=== PATIENT | male | born 1975 | race Caucasian/White ===

== ENCOUNTER 2017-12-18 15:22 | Emergency (ER) | payer BC ==
[2017-12-18] MEDS ORDERED: Sodium Chloride 0.9% 1,000 ML IV ONE ×2 (16:10→18:49)
[2017-12-18] MEDS ORDERED: Sodium Chloride 0.9% 10 ML Syringe FLUSH PRN (16:10)
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
--- NOTE | 2017-12-18 16:54 | CT ---
Head CT Technique: Multiple axial sections through the brain were obtained. Intravenous contrast was not utilized. Comparison: No previous intracranial imaging. Findings: Ventricles along the basal cisterns and sulci over the convexities are within normal limits for the patient's age. No evidence of intracranial hemorrhage. No midline shift or mass effect is seen. Symmetric low density findings are seen within the basal ganglia on both sides most likely representing prominent perivascular spaces. No other abnormal parenchymal densities are seen. Bone window settings were reviewed which shows minimal rounded soft tissue densities within the right side of the sphenoid sinus most likely due to minimal retention cysts. No acute calvarial abnormality is seen. Impression: 1. Sinus finding felt to be incidental as noted above. 2. Symmetric low density findings within the basal ganglia most likely due to incidental prominent perivascular spaces. 3. No acute intracranial abnormality is identified. Diagnostic code #2
[2017-12-18] MEDS ORDERED: Ketorolac 30 MG/ML SDV IVPUSH ONE (17:56)
[2017-12-18] MEDS ORDERED: HYDROmorphone 0.5 MG/0.5 ML SYRINGE IVPUSH ONE (18:49)
--- NOTE | 2017-12-19 11:12 | CR ---
Chest: Portable view of the chest was obtained. Comparison: No prior study. Heart size and mediastinum are normal. Lungs are clear. Minimal scoliosis is present within the spine. Impression: 1. Nothing acute is appreciated on portable chest x-ray. Diagnostic code #2
== END 2017-12-18 20:25 | disposition home or self-care (01) ==
LOC: JD.ED 15:22
DX: G43.909 Migraine, unspecified, not intractable, without status migrainosus (principal); R68.83 Chills (without fever); T39.1X5A Adverse effect of 4-Aminophenol derivatives, initial encounter; T39.315A Adverse effect of propionic acid derivatives, initial encounter; M54.9 Dorsalgia, unspecified; I10 Essential (primary) hypertension
CPT/HCPCS: 36415; 70450; 71045; 80053; 80306; 81001; 82550; 82962; 84443; 84484; 85007; 85027; 86140; 93005; 96361; 96374; 99285; G0480; J1885; J7040; J7050

== ENCOUNTER 2018-09-25 20:25 | Emergency (ER) | payer BC ==
--- NOTE | 2018-09-25 21:17 | EDM.PDOC ---
ED HPI GENERAL MEDICAL PROBLEM - General Chief Complaint: Gastrointestinal Problem Stated Complaint: Throat FB Time Seen by Provider: 09/25/18 20:51 Source of Information: Reports: Patient, RN Notes Reviewed - History of Present Illness INITIAL COMMENTS - FREE TEXT/NARRATIVE: 43-year-old male presents to ED with food stuck in his esophagus. He was eating steak about an hour ago and what he believes was a chunk of steak got stuck upper chest. There was intense localized discomfort, difficulty to drink or swallow saliva. Now just a few minutes before I got into the room states "it went down". He still has very slight discomfort upper chest but nothing like what he had been experiencing. She has had food "hang out in his upper esophageal area" somewhat frequently in the past never had complete obstruction like this where "it would not go down". History of acid reflux for quite some time. He currently takes Tums or Rolaids as needed. Taken OTC omeprazole in the past but currently not taking that on a regular basis. Throat Pain Score (Numeric/FACES): 3 - Related Data Allergies Allergy/AdvReac Type Severity Reaction Status Date / Time Penicillins Allergy Rash Verified 09/25/18 20:35 Home Meds: Home Meds Omeprazole 40 mg PO ONETIME #30 cap.sr 09/25/18 [Rx] Past Medical History - Past Health History Medical/Surgical History: Denies Medical/Surgical History Cardiovascular History: Reports: Hypertension Social & Family History - Tobacco Use Smoking Status *Q: Never Smoker - Caffeine Use Caffeine Use: Reports: Coffee, Energy Drinks, Soda, Tea - Recreational Drug Use Recreational Drug Use: No ED ROS GENERAL - Review of Systems Review Of Systems: See Below Constitutional: Reports: No Symptoms HEENT: Denies: Throat Pain, Throat Swelling Respiratory: Denies: Shortness of Breath Cardiovascular: Reports: Chest Pain (Upper mid chest) GI/Abdominal: Reports: Nausea (Now better). Denies: Abdominal Pain, Vomiting Musculoskeletal: Denies: Shoulder Pain, Arm Pain, Back Pain Skin: Reports: No Symptoms Neurological: Reports: No Symptoms ED EXAM, GI/ABD - Physical Exam Exam: See Below General Appearance: Alert, No Apparent Distress Throat/Mouth: Normal Inspection, Normal Oropharynx Neck: Supple Respiratory/Chest: No Respiratory Distress, Lungs Clear, Normal Breath Sounds Cardiovascular: Regular Rate, Rhythm GI/Abdominal Exam: Soft, Non-Tender Neurological: Alert, Oriented, No Motor/Sensory Deficits Skin Exam: Warm, Dry Course - Vital Signs Last Recorded V/S: Last Vital Signs Temp 97.8 F 09/25/18 20:30 Pulse 87 09/25/18 20:30 Resp 18 09/25/18 20:30 BP 153/117 H 09/25/18 20:30 Pulse Ox 99 09/25/18 20:30 - Re-Assessments/Exams Free Text/Narrative Re-Assessment/Exam: 09/25/18 23:17 Patient reportedly was quite uncomfortable on arrival to ED but no evidence of food boluses gone down he is feeling tremendously better. Have him drink water and that went down well without difficulty he feels slight discomfort swallowing but is able to get it down which he had not been able to do at home or upon arrival to ED. She's been advised that he does need to follow-up with the medical provider and should have endoscopy done to evaluate his esophagus. His was present while we had this discussion. Discharge instructions as documented. Departure - Departure Time of Disposition: 21:11 Disposition: Home, Self-Care 01 Condition: Fair Clinical Impression: Chronic GERD Food impaction of esophagus Qualifiers: Encounter type: initial encounter Qualified Code(s): T18.128A - Food in esophagus causing other injury, initial encounter - Discharge Information Prescriptions: Omeprazole 40 mg PO ONETIME #30 cap.sr Instructions: Gastroesophageal Reflux Disease, Adult, [id number] Referrals: PCP,None [Primary Care Provider] - Forms: ED Department Discharge Additional Instructions: clear liquids and careful soft diet for the next 2 to 3 days, than advance diet slowly and carefully as tolerated, cut meat and all other foods very carefully into very small pieced, chew food very carefully before swallowing, see one of the surgeons or Dr Coffman at [facility], call [phone] for appt., return to ED as needed. Take omeprazole 40 mg tonight, a prescription has been sent to [facility], you can pick that up tomorrow morning.
== END 2018-09-25 21:29 | disposition home or self-care (01) ==
LOC: JD.ED 20:25
DX: T18.128A Food in esophagus causing other injury, initial encounter (principal); K21.9 Gastro-esophageal reflux disease without esophagitis; I10 Essential (primary) hypertension; Z88.0 Allergy status to penicillin
CPT/HCPCS: 99282; 99283

== ENCOUNTER → 2020-07-15 | Day surgery (SDC) | payer BC ==
[~2020-07-15] MED LIST: Lactated Ringers 1,000 ML IV SCH; Lidocaine 1%/Sod Bicarbonate in NS 8.4% 1 ML Syringe IDERM PRN; Midazolam 1 MG/ML 2 ML SDV ONE; Propofol 200 MG/20 ML SDV ONE; Sodium Chloride 0.9% 10 ML Syringe FLUSH PRN
--- NOTE | 2020-07-15 07:24 | PCM.PREANE ---
Preanesthetic Assessment - Procedure Proposed Procedure: EGD - Anesthesia/Transfusion/Family Hx Anesthesia History: No Prior Anesthesia Family History of Anesthesia Reaction: No Transfusion History: No Prior Transfusion(s) Intubation History: Unknown - Review of Systems General: No Symptoms Pulmonary: No Symptoms Cardiovascular: No Symptoms Gastrointestinal: Other (GERD when not on medication, dysphagia ) Neurological: No Symptoms Other: Reports: None - Physical Assessment NPO Status Date: 07/14/20 NPO Status Time: 21:00 Height: 1.83 m Weight: 101.2 kg ASA Class: 2 Mental Status: Alert & Oriented x3 Thyro-Mental Finger Breadths: 3 Mouth Opening Finger Breadths: 5 ROM/Head Extension: Full Lungs: Clear to Auscultation, Normal Respiratory Effort Cardiovascular: Regular Rate, Regular Rhythm - Blood Blood Available: No - Acknowledgements Anesthesia Type Planned: MAC Pt an Appropriate Candidate for the Planned Anesthesia: Yes Alternatives and Risks of Anesthesia Discussed w Pt/Guardian: Yes Pt/Guardian Understands and Agrees with Anesthesia Plan: Yes PreAnesthesia Questionnaire - Past Health History Medical/Surgical History: Denies Medical/Surgical History HEENT History: Reports: Sinusitis Cardiovascular History: Reports: Hypertension Respiratory History: Reports: None Gastrointestinal History: Reports: Other (See Below) Other Gastrointestinal History: dysphagia, heartburn, umbilical hernia Genitourinary History: Reports: None [employer] History: Reports: None Musculoskeletal History: Reports: None Neurological History: Reports: None Psychiatric History: Reports: None Endocrine/Metabolic History: Reports: None Hematologic History: Reports: None Immunologic History: Reports: None Oncologic (Cancer) History: Reports: None Dermatologic History: Reports: Cellulitis - Infectious Disease History Infectious Disease History: Reports: None - Past Surgical History Head Surgeries/Procedures: Reports: None Cardiovascular Surgical History: Reports: None Respiratory Surgical History: Reports: None GI Surgical History: Reports: None Female Surgical History: Reports: None Male Surgical History: Reports: None Endocrine Surgical History: Reports: None Neurological Surgical History: Reports: None Musculoskeletal Surgical History: Reports: None Oncologic Surgical History: Reports: None Dermatological Surgical History: Reports: None - SUBSTANCE USE Tobacco Use Status *Q: Former Tobacco User Recreational Drug Use History: No - HOME MEDS Home Medications: Home Meds Omeprazole 40 mg PO ONETIME #30 cap.sr 09/25/18 [Rx] Fenofibrate Nanocrystallized [Fenofibrate] 145 mg PO DAILY 12/16/20 [History] Losartan [Cozaar] 50 mg PO DAILY 07/14/20 [History] - CURRENT (IN HOUSE) MEDS Current Meds: Current Medications Lactated Ringer's (Ringers, Lactated) 1,000 mls @ 125 mls/hr IV ASDIRECTED JEREMIAH Last Admin: 07/15/20 07:16 Dose: 125 mls/hr Documented by: Lidocaine/Sodium Bicarbonate (Buffered Lidocaine 1% In Ns 8.4%) 0.25 ml IDERM ONETIME PRN PRN Reason: Prior to IV Start Last Admin: 07/15/20 07:16 Dose: 0.25 ml Documented by: Sodium Chloride (Saline Flush) 10 ml FLUSH ASDIRECTED PRN PRN Reason: Keep Vein Open
--- NOTE | 2020-07-15 08:19 | PCM.PRNOTE ---
- Free Text/Narrative Note: Date: 07/15/2020 Procedure: diagnostic EGD Indication: chronic GERD, dysphagia Endoscopist: Gus Shay MD Findings: hypotensive LES with gross inflammatory change of the distal esophagus Detailed Report: The patient was taken to the endoscopy suite and placed in left lateral decubitus position. Timeout was performed, and monitored anesthesia care initiated. A bite-block was placed, and the endoscope was inserted into the mouth. The scope was advanced to the second portion of the duodenum with ease. Duodenal mucosal appeared normal. A biopsy from the duodenal bulb was obtained with cold forceps. The pylorus and antrum appeared normal. A sample of gastric antrum was obtained with cold forceps. The remainder of the stomach mucosa appeared normal, with no evidence of inflammatory change or ulceration. On retroflexion, there was what appeared to be a hypotensive lower esophageal sphincter, with a fair amount of space surrounding the scope at its entry point into the stomach. The scope was withdrawn into the distal esophagus, no significant hiatal hernia was really appreciated. The Z-line appeared irregular, with some inflammatory change noted of the distal esophagus. A sample biopsy was obtained of distal esophageal mucosa with cold forceps. Air was suctioned from the stomach as the scope was withdrawn. No other esophageal pathology was noted. The patient tolerated the procedure well.
--- NOTE | 2020-07-15 08:21 | PCM48HPAN ---
Post Anesthesia Note - EVALUATION WITHIN 48HRS OF ANESTHETIC Vital Signs in Normal Range: Yes Patient Participated in Evaluation: Yes Respiratory Function Stable: Yes Airway Patent: Yes Cardiovascular Function Stable: Yes Hydration Status Stable: Yes Pain Control Satisfactory: Yes Nausea and Vomiting Control Satisfactory: Yes Mental Status Recovered: Yes Vital Signs: 0814 156/106 96 RA 91 20 97.3 Last Vital Signs Temp 36.3 C 07/15/20 07:35 Pulse 80 07/15/20 07:35 Resp 16 07/15/20 07:35 BP 152/103 H 07/15/20 07:35 Pulse Ox 95 07/15/20 07:35
--- NOTE | 2020-07-15 10:28 | CT ---
CT chest Technique: Multiple axial sections were obtained from above the lung apices inferiorly through the lung bases. Small amount of oral contrast was given. Reconstructed coronal and sagittal images were obtained. Comparison: No prior chest CT, previous chest x-ray of 12/19/79. Findings: Mediastinum appears within normal limits. Thoracic aorta shows no aneurysm. Very minimal coronary artery calcification is seen. No pericardial thickening is seen. 2 small nodules are seen within the posterior right upper lung with small scar extending to the posterior pleura. Small subpleural nodule is noted within the right upper lung anteriorly. Nodules measure of less than 5 mm. Slight atelectasis or scarring seen within the right lung base. No additional nodule is appreciated. Small area of accessory splenic tissue is noted medial to the spleen Bone window settings were reviewed which shows no acute osseous finding. Impression: 1. Several small nodules within the right upper chest. Largest measures less than 5 mm. Consider follow-up noncontrast CT study in one year to make sure these are stable. 2. Small hiatal hernia with no esophageal wall thickening. 3. Mild areas of scarring as noted above. Diagnostic code #9
== END | disposition home or self-care (01) ==
LOC: JD.SDS 06:40
PROVIDERS: ATTEND Surgery
DX: K31.89 Other diseases of stomach and duodenum (principal); I78.1 Nevus, non-neoplastic; K21.9 Gastro-esophageal reflux disease without esophagitis; I10 Essential (primary) hypertension; Z88.1 Allergy status to other antibiotic agents; Z79.899 Other long term (current) drug therapy; Z87.891 Personal history of nicotine dependence
CPT/HCPCS: 43239; 71250; J2250; J2704; J7120; 00731